=== PATIENT | male | born 1985 ===

== ENCOUNTER 2021-04-08 16:58 | Emergency (ER) | payer SELFPAY ==
[~2021-04-08] VITALS: Ht 170.2 cm; Wt 72.6 kg
[2021-04-08 16:58] VITALS: BP 129/76
== END 2021-04-08 17:39 | disposition left against medical advice (07) ==
LOC: ER 16:58
DX: R07.89 Other chest pain (principal); R06.02 Shortness of breath; Z53.21 Procedure and treatment not carried out due to patient leaving prior to being seen by health care provider
CPT/HCPCS: 93005